=== PATIENT | female | born 1935 | race Caucasian/White ===

== ENCOUNTER 2019-03-19 11:54 | Emergency (ER) | payer MEDICARE, OTHER ==
[2019-03-19] MEDS ORDERED: Aspirin 81 MG Tab.Chew PO ONE (12:21)
--- NOTE | 2019-03-19 12:25 | EDM.PDOC ---
ED HPI GENERAL MEDICAL PROBLEM - General Chief Complaint: Chest Pain Stated Complaint: CHEST PAIN, SOB Time Seen by Provider: 03/19/19 12:10 Source of Information: Reports: Patient, Old Records, RN Notes Reviewed History Limitations: Reports: No Limitations - History of Present Illness INITIAL COMMENTS - FREE TEXT/NARRATIVE: 83-year-old female presents emergency Department a complaint of chest pain, states his had chest pain for 3 days it does come and go last for approximately 5 minutes rates her pain 8 out of 10 that we'll completely resolved to 0. She states it makes no difference whether she is exerting herself or sitting still when the pain comes. She has a history of congestive heart failure with pacemaker implantation however denies any knowledge of myocardial infarction. She is anticoagulated because of her atrial fibrillation. States her shortness of breath is not beyond baseline no diaphoresis no nausea Chest Pain Score (Numeric/FACES): 8 - Related Data Allergies Allergy/AdvReac Type Severity Reaction Status Date / Time pneumococcal vaccine Allergy Hives Verified 03/19/19 12:07 [Pneumococcal Vaccine] Home Meds: Home Meds Fosinopril [Monopril] 20 mg PO DAILY 08/24/13 [History] Levothyroxine [Synthroid] 100 mcg PO ACBRK #30 tablet 08/28/13 [Rx] Warfarin [Coumadin] 2.5 mg PO DAILY 10/01/14 [History] Metoprolol Succinate [Toprol XL] 25 mg PO BID 12/02/14 [History] Potassium Chloride 20 meq PO DAILY 12/02/14 [History] Furosemide 60 mg PO DAILY #145 tablet 07/22/18 [Rx] Past Medical History Cardiovascular History: Reports: Afib, Heart Failure, Hypertension, Pacemaker, Other (See Below) Respiratory History: Reports: Sleep Apnea 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: Musculoskeletal History: Reports: Osteoarthritis Endocrine/Metabolic History: Reports: Hypothyroidism, Obesity/BMI 30+ Hematologic History: Reports: Blood Transfusion(s) - Infectious Disease History Infectious Disease History: Reports: Measles, Pertussis (Whooping Cough), Rheumatic Fever - Past Surgical History Head Surgeries/Procedures: Reports: None HEENT Surgical History: Reports: Laser Surgery Cardiovascular Surgical History: Reports: Cardiac Ablation, Pacer Respiratory Surgical History: Reports: None GI Surgical History: Reports: Colonoscopy Endocrine Surgical History: Reports: None Musculoskeletal Surgical History: Reports: None Dermatological Surgical History: Reports: None Social & Family History - Family History Family Medical History: Noncontributory - Tobacco Use Smoking Status *Q: Never Smoker - Caffeine Use Caffeine Use: Reports: Coffee - Recreational Drug Use Recreational Drug Use: No - Living Situation & Occupation Living situation: Reports: (lives with 2nd Eitan of 18 years. had 3 children. one set of twin (son young adult), son living in [place] , daughter living in [place].) Occupation: Retired ED ROS GENERAL - Review of Systems Review Of Systems: See Below Constitutional: Reports: No Symptoms HEENT: Reports: No Symptoms Respiratory: Reports: Shortness of Breath Cardiovascular: Reports: Chest Pain, Dyspnea on Exertion GI/Abdominal: Reports: No Symptoms : Reports: No Symptoms ED EXAM, GENERAL - Physical Exam Exam: See Below Exam Limited By: No Limitations General Appearance: Alert, WD/WN, No Apparent Distress Neck: Normal Inspection, Supple, Non-Tender, Full Range of Motion Respiratory/Chest: No Respiratory Distress, Lungs Clear, Normal Breath Sounds, No Accessory Muscle Use, Chest Non-Tender Cardiovascular: Regular Rate, Rhythm, No Murmur GI/Abdominal: Soft, Non-Tender Extremities: Pedal Edema Course - Vital Signs Last Recorded V/S: Last Vital Signs Temp 96.8 F 03/19/19 11:59 Pulse 60 03/19/19 11:59 Resp 16 03/19/19 11:59 BP 134/56 L 03/19/19 11:59 Pulse Ox 97 03/19/19 11:59 - Orders/Labs/Meds Orders: Active Orders 24 hr Category Date Time Status Cardiac Monitoring [RC] .As Directed Care 03/19/19 12:21 Active EKG Documentation Completion [RC] ASDIRECTED Care 03/19/19 12:22 Active EKG 12 Lead [EK] Stat Ther 03/19/19 12:22 Ordered Labs: Laboratory Tests 03/19/19 03/19/19 03/19/19 Range/Units 12:30 12:30 12:30 WBC 6.7 (4.5-11.0) K/uL RBC 4.06 (3.30-5.50) M/uL Hgb 12.9 (12.0-15.0) g/dL Hct 40.9 (36.0-48.0) % MCV 101 H (80-98) fL MCH 32 H (27-31) pg MCHC 32 (32-36) % Plt Count 207 (150-400) K/uL Neut % (Auto) 58 (36-66) % Lymph % (Auto) 24 (24-44) % [place] % (Auto) 13 H (2-6) % Eos % (Auto) 4 (2-4) % Baso % (Auto) 0 (0-1) % PT 28.4 H (9.5-12.0) sec INR 2.79 H (0.80-1.20) Sodium 141 (140-148) mmol/L Potassium 4.2 (3.6-5.2) mmol/L Chloride 101 (100-108) mmol/L Carbon Dioxide 33 H (21-32) mmol/L Anion Gap 11.2 (5.0-14.0) mmol/L BUN 37 H (7-18) mg/dL Creatinine 1.7 H (0.6-1.0) mg/dL Est Cr Clr Drug Dosing 21.65 mL/min Estimated GFR (MDRD) 29 L (>60) Glucose 126 H (74-106) mg/dL Calcium 8.5 (8.5-10.1) mg/dL Total Bilirubin 0.3 (0.2-1.0) mg/dL AST 16 (15-37) U/L ALT 30 (12-78) U/L Alkaline Phosphatase 67 (46-116) U/L Troponin I < 0.017 (0.000-0.056) ng/mL Total Protein 6.3 L (6.4-8.2) g/dL Albumin 3.0 L (3.4-5.0) g/dL Globulin 3.3 (2.3-3.5) g/dL Albumin/Globulin Ratio 0.9 L (1.2-2.2) Meds: Medications Discontinued Medications Generic Name Dose Route Start Last Admin Trade Name Freq PRN Reason Stop Dose Admin Aspirin 324 mg 03/19/19 12:21 03/19/19 12:34 Aspirin PO 03/19/19 12:22 324 mg ONETIME ONE Administration Departure - Departure Time of Disposition: 13:33 Disposition: Home, Self-Care 01 Condition: Fair Clinical Impression: Atypical chest pain Referrals: PCP,None [Primary Care Provider] - Forms: ED Department Discharge Additional Instructions: Continue using Tums as needed for discomfort, the [facility] will call you Friday morning for an appointment time with Dr. Mustafa for further evaluation - My Orders Last 24 Hours: My Active Orders 03/19/19 12:21 Cardiac Monitoring [RC] .As Directed 03/19/19 12:22 EKG Documentation Completion [RC] ASDIRECTED EKG 12 Lead [EK] Stat - Assessment/Plan Last 24 Hours: My Active Orders 03/19/19 12:21 Cardiac Monitoring [RC] .As Directed 03/19/19 12:22 EKG Documentation Completion [RC] ASDIRECTED EKG 12 Lead [EK] Stat Plan: Assessment Acuity = acute Site and laterality = atypical chest pain probably related to gastroesophageal reflux disease Etiology = unclear etiology Manifestations = none] Location of injury = Home Lab values = CBC unremarkable, creatinine elevated at 1.7 consistent with chronic renal failure state G IIIB troponin was negative EKG demonstrates atrial flutter in a sinus rhythm no ST changes or depression EKG was similar to prior EKGs does have left axis deviation. Chest x-ray reveals stable cardiomegaly. 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 Therefore will set up with Dr. Mustafa in the clinic for further evaluation of the chest discomfort difficulty swallowing and possible esophageal stenosis This note was dictated using [employer] voice recognition software please call with any questions on syntax or grammar.
--- NOTE | 2019-03-19 13:20 | CRLCR ---
INDICATION: Chest pain. COMPARISON: Chest radiograph 07/19/2018. TECHNIQUE: Two view chest. FINDINGS: Resolution of previously seen lower lung opacities. Linear atelectasis or scarring in the left lung base. No focal consolidation, pleural effusion, or pneumothorax. Stable cardiomegaly. Normal pulmonary vascularity. Calcified tortuous aorta. Left chest pacemaker appear IMPRESSION: Stable cardiomegaly. No acute cardiopulmonary findings. Dictated by Yamila Vernon MD @ Mar 19 2019 1:16PM Signed by Dr. Yamila Vernon @ Mar 19 2019 1:18PM
[2019-03-19 13:44] VITALS: BP 106/44
== END 2019-03-19 13:46 | disposition home or self-care (01) ==
LOC: JP.ED 11:54
DX: R07.89 Other chest pain (principal); I11.0 Hypertensive heart disease with heart failure; I50.9 Heart failure, unspecified; I48.91 Unspecified atrial fibrillation; E03.9 Hypothyroidism, unspecified; Z88.7 Allergy status to serum and vaccine; Z79.899 Other long term (current) drug therapy; Z79.01 Long term (current) use of anticoagulants; Z95.0 Presence of cardiac pacemaker
CPT/HCPCS: 36415; 71046; 80053; 84484; 85025; 85610; 93005; 99285; A9270

== ENCOUNTER 2019-11-17 16:41 | Emergency (ER) | payer MEDICARE, OTHER ==
[2019-11-17] MEDS ORDERED: Sodium Chloride 0.9% 10 ML Syringe FLUSH PRN ×2 (17:56)
[2019-11-17] MEDS ORDERED: Ondansetron 4 MG/2 ML SDV IVPUSH ONE (18:01)
--- NOTE | 2019-11-17 18:07 | EDM.PDOC ---
ED HPI GENERAL MEDICAL PROBLEM - General Chief Complaint: Head Injury Stated Complaint: PASSED OUT, FELL, HIT HEAD Time Seen by Provider: 11/17/19 17:51 Source of Information: Reports: Patient, RN Notes Reviewed History Limitations: Reports: No Limitations - History of Present Illness INITIAL COMMENTS - FREE TEXT/NARRATIVE: 84-year-old female presents emergency department today following a period of loss of consciousness she remembers last known well time around 1230 this afternoon awoke on the floor at 330 this afternoon unaware of what happened she believes she fell she does have a large bruise on her forehead as well as pain in her left shoulder, also complains of a headache she does have a pacemaker implantation as well as past medical history of atrial fibrillation and congestive heart failure is currently on Coumadin, Headache Pain Score (Numeric/FACES): 8 - Related Data Allergies Allergy/AdvReac Type Severity Reaction Status Date / Time pneumococcal vaccine Allergy Hives Verified 11/17/19 17:54 [Pneumococcal Vaccine] Home Meds: Home Meds Fosinopril [Monopril] 20 mg PO DAILY 08/24/13 [History] Levothyroxine [Synthroid] 100 mcg PO ACBRK #30 tablet 08/28/13 [Rx] Warfarin [Coumadin] 2.5 mg PO DAILY 10/01/14 [History] Metoprolol Succinate [Toprol XL] 25 mg PO BID 12/02/14 [History] Potassium Chloride 20 meq PO DAILY 12/02/14 [History] Fluticasone Propionate [Flonase Allergy Relief] 2 sprays NS DAILY 11/17/19 [ History] Furosemide 80 mg PO DAILY 11/17/19 [History] Spironolactone [Aldactone] 12.5 mg PO DAILY 11/17/19 [History] Past Medical History Cardiovascular History: Reports: Afib, Heart Failure, Hypertension, Pacemaker Respiratory History: Reports: Sleep Apnea 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: Musculoskeletal History: Reports: Osteoarthritis Endocrine/Metabolic History: Reports: Hypothyroidism, Obesity/BMI 30+ Hematologic History: Reports: Blood Transfusion(s) - Infectious Disease History Infectious Disease History: Reports: Measles, Pertussis (Whooping Cough), Rheumatic Fever - Past Surgical History Head Surgeries/Procedures: Reports: None HEENT Surgical History: Reports: Laser Surgery Cardiovascular Surgical History: Reports: Cardiac Ablation, Pacer Respiratory Surgical History: Reports: None GI Surgical History: Reports: Colonoscopy Endocrine Surgical History: Reports: None Musculoskeletal Surgical History: Reports: None Dermatological Surgical History: Reports: None Social & Family History - Family History Family Medical History: Noncontributory - Tobacco Use Smoking Status *Q: Never Smoker Second Hand Smoke Exposure: No - Caffeine Use Caffeine Use: Reports: Coffee - Recreational Drug Use Recreational Drug Use: No - Living Situation & Occupation Living situation: Reports: (lives with 2nd Eitan of 18 years. had 3 children. one set of twin (son young adult), son living in [place] , daughter living in [place].) Occupation: Retired ED ROS GENERAL - Review of Systems Review Of Systems: See Below Constitutional: Reports: Weakness. Denies: Fever, Chills HEENT: Reports: No Symptoms Respiratory: Reports: No Symptoms Cardiovascular: Reports: No Symptoms GI/Abdominal: Reports: Nausea. Denies: Vomiting Musculoskeletal: Reports: Shoulder Pain Skin: Reports: Bruising (Face) Neurological: Reports: Headache ED EXAM, HEAD INJURY - Physical Exam Exam: See Below Text/Narrative:: Primary survey GCS 15 airways open patent and clear lungs are clear to auscultation bilaterally cardiovascular demonstrates regular rate and rhythm S1- S2 Secondary survey General: Elderly female, not in any distress GCS 15, alert and oriented x3 HEENT : head is large hematoma is appreciated left frontal parietal region tender to the touch in that area normocephalic, eyes pupils equal round reactive to light , sclera clear no conjunctivitis appreciated slight amount of ptosis is appreciated on the right eye secondary to prior surgical intervention. Ears tympanic membranes clear and alvarez landmarks and light reflex are present bilaterally canals are clear. Nose no septal deviation, nares are clear, no blood present. Mouth mucosa is moist and pink no erythema or exudate noted in soft palate, tongue is midline uvula is midline, dentition is intact. Neck: Supple no thyromegaly no tracheal deviation. NO posterior midline C-spine tenderness NO evidence of intoxication GCS > 14 No focal neurological deficit NO distracting injury Nodes: Cervical nodes subclavicular nodes nontender no palpable lymphadenopathy noted. Lungs: clear to auscultation bilaterally with symmetrical respirations, no adventitious noise appreciated. CV: Regular rate and rhythm S1 and S2 appreciated no murmurs rubs or gallops noted. Abdomen: Soft, nontender, no palpable masses or organomegaly appreciated, no distention no guarding bowel sounds are present, [scars ]. Neuro: Cranial nerves II test with pupillary light reflex 4 mm to 2 mm bilaterally, CN III test pupillary constriction, lid elevation and eye abduction bilaterally, CN IV downward movement of eyes bilaterally, CN V good jaw movement, CN lateral deviation of the eyes bilaterally to finger movement , CN VII symmetrical smile shows teeth without difficulty, CN VIII pass finger rub to ears bilaterally, CN IX adequate voice and tone, CN X adequate voice and tone no difficulty swallowing, CN XI can shrug shoulders without difficulty, CN XII can stick tongue out without difficulty, cranial nerves II to XII intact as tested, Skin: Warm and dry, intact Extremities: No lower extremity edema appreciated, pedal pulse is +2. No tenderness right shoulder, bilateral elbows or wrists nontender pelvic rocks is negative no tenderness to knees ankles bilaterally, she is tender to palpation over the left shoulder I cannot appreciate any deformity bruising or edema Course - Vital Signs Last Recorded V/S: Last Vital Signs Temp 97.0 F 11/17/19 17:57 Pulse 60 11/17/19 19:20 Resp 16 11/17/19 19:20 BP 171/75 H 11/17/19 19:20 Pulse Ox 98 11/17/19 19:20 - Orders/Labs/Meds Orders: Active Orders 24 hr Category Date Time Status EKG Documentation Completion [RC] ASDIRECTED Care 11/17/19 17:57 Active Peripheral IV Care [RC] . DIRECTED Care 11/17/19 17:57 Active Shoulder Comp Lt [CR] Stat Exams 11/17/19 18:03 Taken Peripheral IV Insertion Adult [OM.PC] Urgent Oth 11/17/19 17:56 Ordered EKG 12 Lead [EK] Urgent Ther 11/17/19 17:56 Ordered Labs: Laboratory Tests 11/17/19 11/17/19 11/17/19 Range/Units 18:00 18:00 18:00 WBC 10.0 (4.5-11.0) K/uL RBC 4.36 (3.30-5.50) M/uL Hgb 13.8 (12.0-15.0) g/dL Hct 43.7 (36.0-48.0) % MCV 100 H (80-98) fL MCH 32 H (27-31) pg MCHC 32 (32-36) % Plt Count 235 (150-400) K/uL Neut % (Auto) 74 H (36-66) % Lymph % (Auto) 17 L (24-44) % [place] % (Auto) 8 H (2-6) % Eos % (Auto) 2 (2-4) % Baso % (Auto) 1 (0-1) % PT 20.3 H (9.5-12.0) sec INR 1.95 H (0.80-1.20) Sodium 141 (140-148) mmol/L Potassium 4.0 (3.6-5.2) mmol/L Chloride 103 (100-108) mmol/L Carbon Dioxide 29 (21-32) mmol/L Anion Gap 9.2 (5.0-14.0) mmol/L BUN 28 H (7-18) mg/dL Creatinine 1.6 H (0.6-1.0) mg/dL Est Cr Clr Drug Dosing 21.65 mL/min Estimated GFR (MDRD) 31 L (>60) Glucose 127 H (74-106) mg/dL Lactic Acid (0.4-2.0) mmol/L Calcium 9.3 (8.5-10.1) mg/dL Total Bilirubin 0.4 (0.2-1.0) mg/dL AST 21 (15-37) U/L ALT 35 (12-78) U/L Alkaline Phosphatase 95 (46-116) U/L Creatine Kinase (26-192) U/L Troponin I < 0.017 (0.000-0.056) ng/mL Total Protein 7.7 (6.4-8.2) g/dL Albumin 3.8 (3.4-5.0) g/dL Globulin 3.9 H (2.3-3.5) g/dL Albumin/Globulin Ratio 1.0 L (1.2-2.2) Ethyl Alcohol mg/dL 11/17/19 11/17/19 11/17/19 Range/Units 18:00 18:00 18:00 WBC (4.5-11.0) K/uL RBC (3.30-5.50) M/uL Hgb (12.0-15.0) g/dL Hct (36.0-48.0) % MCV (80-98) fL MCH (27-31) pg MCHC (32-36) % Plt Count (150-400) K/uL Neut % (Auto) (36-66) % Lymph % (Auto) (24-44) % [place] % (Auto) (2-6) % Eos % (Auto) (2-4) % Baso % (Auto) (0-1) % PT (9.5-12.0) sec INR (0.80-1.20) Sodium (140-148) mmol/L Potassium (3.6-5.2) mmol/L Chloride (100-108) mmol/L Carbon Dioxide (21-32) mmol/L Anion Gap (5.0-14.0) mmol/L BUN (7-18) mg/dL Creatinine (0.6-1.0) mg/dL Est Cr Clr Drug Dosing mL/min Estimated GFR (MDRD) (>60) Glucose (74-106) mg/dL Lactic Acid 2.0 (0.4-2.0) mmol/L Calcium (8.5-10.1) mg/dL Total Bilirubin (0.2-1.0) mg/dL AST (15-37) U/L ALT (12-78) U/L Alkaline Phosphatase (46-116) U/L Creatine Kinase 44 (26-192) U/L Troponin I (0.000-0.056) ng/mL Total Protein (6.4-8.2) g/dL Albumin (3.4-5.0) g/dL Globulin (2.3-3.5) g/dL Albumin/Globulin Ratio (1.2-2.2) Ethyl Alcohol 3 mg/dL Meds: Medications Discontinued Medications Generic Name Dose Route Start Last Admin Trade Name Freq PRN Reason Stop Dose Admin Fentanyl 50 mcg 11/17/19 19:34 Sublimaze IVPUSH 11/17/19 19:35 ONETIME ONE Ondansetron HCl 4 mg 11/17/19 18:01 Zofran IVPUSH 11/17/19 18:02 ONETIME ONE Ondansetron HCl 4 mg 11/17/19 18:38 11/17/19 18:48 Zofran Odt PO 11/17/19 18:39 4 mg ONETIME ONE Administration Sodium Chloride 10 ml 11/17/19 17:56 Saline Flush FLUSH ASDIRECTED PRN Keep Vein Open Sodium Chloride 10 ml 11/17/19 17:56 Saline Flush FLUSH ASDIRECTED PRN Keep Vein Open Departure - Departure Time of Disposition: 19:37 Disposition: DC/Tfer to Acute Hospital 02 Condition: Fair Clinical Impression: Focal hemorrhagic contusion of cerebrum - Discharge Information Referrals: Juwan Briceño MD [Primary Care Provider] - Forms: ED Department Discharge Sepsis Event Note - Evaluation Sepsis Screening Result: No Definite Risk - Focused Exam Vital Signs: Vital Signs Temp Pulse Resp BP Pulse Ox 11/17/19 19:20 60 16 171/75 H 98 11/17/19 18:47 59 L 16 163/71 H 96 11/17/19 17:57 97.0 F 60 16 162/70 H 98 11/17/19 17:50 97.0 F 60 16 162/70 H 98 Date Exam was Performed: 11/17/19 Time Exam was Performed: 19:35 - My Orders Last 24 Hours: My Active Orders 11/17/19 17:56 Peripheral IV Insertion Adult [OM.PC] Urgent EKG 12 Lead [EK] Urgent 11/17/19 17:57 EKG Documentation Completion [RC] ASDIRECTED Peripheral IV Care [RC] . DIRECTED 11/17/19 18:03 Shoulder Comp Lt [CR] Stat - Assessment/Plan Last 24 Hours: My Active Orders 11/17/19 17:56 Peripheral IV Insertion Adult [OM.PC] Urgent EKG 12 Lead [EK] Urgent 11/17/19 17:57 EKG Documentation Completion [RC] ASDIRECTED Peripheral IV Care [RC] . DIRECTED 11/17/19 18:03 Shoulder Comp Lt [CR] Stat Plan: Assessment Acuity = acute Site and laterality = frontal lobe hemorrhagic contusion left side Etiology = secondary to fall Manifestations = none Location of injury = Home Lab values = CBC unremarkable INR subtherapeutic 1.95 creatinine elevated 1.6 consistent chronic renal failure stage G3 B lactic acid normal 2.0 troponin was negative alcohol was negative CK normal at 44 EKG demonstrates A. fib flutter paced CT head scan describes the hemorrhagic contusion above Plan Call discussed case with Dr. Hand neurosurgery [facility] at 1919 also discussed the case with emergency department physician Dr. Smith at 1924 currently agreed to accept the patient she will be transported via EMS ground. Neurosurgery recommended no reversal of anticoagulation at this time. This note was dictated using [employer] voice recognition software please call with any questions on syntax or grammar.
[2019-11-17] MEDS ORDERED: Ondansetron 4 MG Tab.DIS PO ONE (18:38)
--- NOTE | 2019-11-17 18:44 | CRLCT ---
INDICATION: Loss of consciousness. Status post head injury. COMPARISON: None available. TECHNIQUE: CT examination of the head was performed with 3 mm thick axial sections without intravenous contrast. Images were obtained from the vertex of the skull through the skull base, and I examined the images with the brain and bone windows. Please note that all CT scans at this facility use dose modulation, iterative reconstruction, and/or weight-based dosing when appropriate to reduce radiation dose to as low as reasonably achievable. FINDINGS: : There is a moderate-sized left anterior parietal scalp hematoma associated with a superficial subperiosteal hematoma. There is no sign of fracture of the underlying parietal skull. There is evidence of contusion of the underlying left frontal lobe, with small areas of petechial hemorrhage at the alvarez-white junction of the anterior-medial frontal lobe. There is no sign of any associated edema or mass effect at this time. No additional contusions are evident elsewhere in the brain. The brain is otherwise normal in appearance for the patient`s age on today`s study, with no sign of mass lesion, mass effect, additional hemorrhage, or edema. There is mild dilatation of the ventricles and sulci representing mild, age-appropriate atrophy. There is minor low density in the periventricular white matter adjacent to the frontal horns and the anterior portions of the lateral ventricles representing mild, age-appropriate small-vessel ischemia. There appear to be changes of bilateral cataract surgery. A senile calcification is seen along the nasal aspect of the right anterior globe. The visualized portions of the paranasal sinuses and mastoids are clear. The osseous structures are normal in their appearance with no sign of abnormality in the skull base or calvarium. IMPRESSION: Small areas of hemorrhagic contusion seen in the anterior-medial left frontal lobe, deep to the moderate-sized acute left anterior parietal scalp and external subperiosteal hematoma. No sign of any associated mass effect. No sign of any associated calvarial fracture. Mild, age-appropriate atrophy and small-vessel ischemic changes. Please note that all CT scans at this facility use dose modulation, iterative reconstruction, and/or weight-based dosing when appropriate to reduce radiation dose to as low as reasonably achievable. Dictated by Eliezer Lui MD @ Nov 17 2019 6:38PM Signed by Dr. Eliezer Lui @ Nov 17 2019 6:43PM
[2019-11-17 19:20] VITALS: PULSE 60
[2019-11-17] MEDS ORDERED: fentaNYL 100 MCG/2 ML SDV IVPUSH ONE (19:34)
[2019-11-17 19:51] VITALS: BP 169/67
--- NOTE | 2019-11-18 10:12 | CR ---
Shoulder Comp Lt CLINICAL HISTORY: Trauma, fall FINDINGS: There is no acute fracture or dislocation in the left shoulder. Articular surfaces are smooth. There is some minimal periarticular spurring in the humeral head. Impression: No fracture or dislocation. Minimal periarticular spurring in the glenohumeral joint.
== END 2019-11-17 20:10 ==
LOC: JP.ED 16:41
DX: S06.32 Contusion and laceration of left cerebrum (principal); I48.91 Unspecified atrial fibrillation; I11.0 Hypertensive heart disease with heart failure; I50.9 Heart failure, unspecified; E03.9 Hypothyroidism, unspecified; E66.9 Obesity, unspecified; Z68.31 Body mass index [BMI] 31.0-31.9, adult; Z88.7 Allergy status to serum and vaccine; Z95.0 Presence of cardiac pacemaker; Z79.899 Other long term (current) drug therapy; Z79.01 Long term (current) use of anticoagulants; W19.XXXA Unspecified fall, initial encounter; W22.8XXA Striking against or struck by other objects, initial encounter; Y92.009 Unspecified place in unspecified non-institutional (private) residence as the place of occurrence of the external cause
CPT/HCPCS: 36415; 70450; 73030-26-LT; 73030-LT; 80053; 80307; 82550; 83605; 84484; 85025; 85610; 93005; 96374; 99285; 99285-25; A9270-GY; J3010